=== PATIENT | male | born 1980 | race Two or more races ===

== ENCOUNTER 2021-05-08 06:09 | Day surgery (SDC) | payer OTHER ==
[~2021-05-08 06:09] MED LIST: GLIPIZIDE ER5 MG PO; METFORMIN HCL500 M3 PO
[2021-05-08] MEDS ORDERED: ULTRAM50 MG PO (13:12)
== END 2021-05-08 13:10 | disposition home or self-care (01) ==
LOC: EDSEX 06:09 → CIR.AMB 06:09
PROVIDERS: ATTEND Surgery
DX: N47.1 Phimosis (principal); Z20.822 Contact with and (suspected) exposure to COVID-19

== ENCOUNTER 2025-09-19 12:24 | Emergency (ER) | payer OTHER ==
[~2025-09-19] VITALS: Ht 180.3 cm; Wt 97.5 kg
[~2025-09-19 12:24] MED LIST changes: +LEVOFLOXACIN500 MG PO; +PYRIDIUM100 M1 PO; +ULTRAM50 MG PO
[2025-09-19] MEDS ORDERED: INSULIN REGULAR, HUMAN 1,000 UNIT/10 ML UNITS IV ONE (14:45)
[2025-09-19] MEDS ORDERED: ORPHENADRINE CITRATE 30 MG/ML AMPUL IM ONE (14:45)
[2025-09-19] MEDS ORDERED: ACETAMINOPHEN 500 MG GEL..CAP PO ONE ×2 (14:45→15:55)
[2025-09-19] MEDS ORDERED: 0.9 % SODIUM CHLORIDE 500 ML IV ONE (14:45)
[2025-09-19] MEDS ORDERED: ORPHENADRINE CITRATE 30 MG/ML AMPUL ONE (15:55)
[2025-09-19 15:59] LABS: BASO % 0.9 % (0.1-1.2); EOS # 0.13 (0.04-0.54); EOS % 2.5 % (0.7-7.0); LYMPH # 1.35 (1.18-3.74); LYMPH % 25.6 % (19.3-53.1); MEAN PLATELET VOLUME 10.00 fl (9.4-12.4); MONO # 0.49 (0.24-0.82); MONO % 9.3 % (4.7-12.5); NEUT # 3.24 (1.56-6.13); NEUT % 61.5 % (34.0-71.1); RED CELL DISTRIBUTION WIDTH 11.9 % (11.6-14.4)
[2025-09-19 16:18] LABS: INR 0.98
[2025-09-19 16:29] LABS: ALT/SGPT 29.0 U/L (12-78); AST/SGOT 15.0 U/L (15-37); BILIRUBIN TOTAL 0.6 mg/dL (0.3-1.2); BUN CREA RATIO 19.0 (7.0-25.0); CREATININE SERUM 0.75 mg/dL (0.70-1.30); GFR 113.66; GLOBULINA 4.5 G/DL (2.4-3.5); OSMOLALITY SERUM 285.0 MOSM/KG (275-295)
[2025-09-19 16:30] LABS: GLUCOSE FASTING 222.0 mg/dL (65-100)
[2025-09-19 16:48] LABS: URINE APPEARANCE Clear; URINE BILIRRUBIN Negative (NEGATIVE); URINE BLOOD Negative; URINE COLOR Yellow; URINE KETONE Trace (NEGATIVE); URINE LEUKOCYTE Negative; URINE NITRATE Negative; URINE PROTEIN Negative (NEGATIVE); URINE UROBILINOGEN 1.0 E.U./dl
[2025-09-19 16:52] LABS: URINE BACTERIA 4.5 uL (0.0-1933)
[2025-09-19 16:53] LABS: URINE CAST 0.00 uL (0.0-1.40); URINE EPITHELIAL CELLS 1.2 uL (0.0-38.8); URINE GLUCOSE >=1000 MG/DL (NEGATIVE); URINE RBC 0.7 uL (0.0-20.8); URINE WBC 1.3 uL (0.0-23.2)
[2025-09-19] MEDS ORDERED: DICLOFENAC SODI50 MG PO (17:15)
[2025-09-19] MEDS ORDERED: NORFLEX100MG PO (17:15)
== END 2025-09-19 18:12 ==
LOC: ER 12:25
PROVIDERS: General Practice
DX: M94.0 Chondrocostal junction syndrome [Tietze] (principal); R07.89 Other chest pain; E11.9 Type 2 diabetes mellitus without complications; Z79.84 Long term (current) use of oral hypoglycemic drugs